=== PATIENT | male | born 1985 ===

== ENCOUNTER 2017-03-15 10:09 | Emergency (ER) | payer OTHER ==
[2017-03-15 10:22] VITALS: BP 132/71; PULSE 77; TEMP 97; O2SAT 97
[2017-03-15 10:42] VITALS: BMI 26.3
--- NOTE | 2017-03-15 13:01 | ED PDOC ---
Lower Extremity Pain/Injury Time Seen by Provider: 03/15/17 10:45 Chief Complaint (Nursing): Lower Extremity Problem/Injury Chief Complaint (Provider): Bilateral foot pain and swelling for 3 months History Per: Patient History/Exam Limitations: no limitations Onset/Duration Of Symptoms: Days Current Symptoms Are (Timing): Still Present Pain Scale Rating Of: 3 Additional Complaint(s): Pt states something hit the ankles/feet 3 months ago at work. Pt reports initial swelling but states now every time he works his ankle and feet swell. No new trauma. PT states that he was seen by WC doctor initially. Pt states no imaging was completed. PT states he comes to the ER today because he did not go to work yesterday or today. Past Medical History Reviewed: Historical Data, Nursing Documentation, Vital Signs Vital Signs: Last Vital Signs Temp 97 F L 03/15/17 10:21 Pulse 77 03/15/17 10:21 Resp BP 132/71 03/15/17 10:21 Pulse Ox 97 03/15/17 10:21 - Medical History PMH: No Chronic Diseases - Surgical History Surgical History: No Surg Hx - Family History Family History: States: No Known Family Hx - Living Arrangements Living Arrangements: With Family - Social History Current smoker - smoking cessation education provided: No Alcohol: Occasional - Immunization History Hx Tetanus Toxoid Vaccination: No Hx Influenza Vaccination: No Hx Pneumococcal Vaccination: No - Allergies Allergies/Adverse Reactions: Allergies Allergy/AdvReac Type Severity Reaction Status Date / Time No Known Allergies Allergy Verified 03/15/17 10:42 Review of Systems ROS Statement: Except As Marked, All Systems Reviewed And Found Negative Musculoskeletal: Positive for: Leg Pain Skin: Negative for: Rash, Bruising Physical Exam - Reviewed Nursing Documentation Reviewed: Yes Vital Signs Reviewed: Yes - Physical Exam Appears: Positive for: Well, Non-toxic, No Acute Distress Head Exam: Positive for: ATRAUMATIC, NORMAL INSPECTION, NORMOCEPHALIC Skin: Positive for: Normal Color (No ertyehma or ecchymosis of bilateral lower extremities ), Warm Eye Exam: Positive for: Normal appearance ENT: Positive for: Normal ENT Inspection Neck: Positive for: Normal, Painless ROM Cardiovascular/Chest: Positive for: Regular Rate, Rhythm Respiratory: Positive for: Normal Breath Sounds. Negative for: Accessory Muscle Use Pulses-Dorsalis Pedis (L): 2+ Pulses-Dorsalis Pedis (R): 2+ Pulses-Post. Tibialis (L): 2+ Pulses-Post. Tibialis (R): 2+ Back: Positive for: Normal Inspection Extremity: Positive for: Normal ROM, Swelling (Bilateral swelling of feet and ankles ). Negative for: Tenderness, Deformity Neurologic/Psych: Positive for: Alert, Oriented - ECG O2 Sat by Pulse Oximetry: 97 Medical Decision Making Medical Decision Making: Ankle x-rays normal. US normal. Disposition - Clinical Impression Clinical Impression: Chronic foot pain - Patient ED Disposition Is Patient to be Admitted: No Counseled Patient/Family Regarding: Diagnosis, Need For Followup - Disposition Referrals: [facility] Relations [facility] [Outside] [facility] [Outside] [facility] [Outside] Disposition: Routine/Home Disposition Time: 12:51 Condition: GOOD Instructions: Swollen Joint (ED) Forms: [facility] ([place]), [facility] ED School/Work Excuse Print Language: BAHAMIAN
--- NOTE | 2017-03-15 13:09 | US ---
PROCEDURE: Bilateral lower extremity venous duplex Doppler. HISTORY: Lower leg swelling COMPARISON: None available. TECHNIQUE: Bilateral common femoral, superficial femoral, popliteal and posterior tibial veins were evaluated. Flow was assessed with color Doppler, compressibility, assessment of phasic flow and augmentation response. FINDINGS: COMMON FEMORAL VEIN: Right CFV: Unremarkable. Left CFV: Unremarkable. SUPERFICIAL FEMORAL VEIN: Right SFV: Unremarkable. Left SFV: Unremarkable. POPLITEAL VEIN: Right Popliteal: Unremarkable. Left Popliteal: Unremarkable. POSTERIOR TIBIAL VEIN: Right PTV: Unremarkable. Left PTV: Unremarkable. OTHER FINDINGS: None. IMPRESSION: No evidence of deep venous thrombosis.
--- NOTE | 2017-03-15 18:12 | RAD ---
PROCEDURE: Right Ankle Radiographs. HISTORY: bilateral ankle pain, swelling x 3 months COMPARISON: None FINDINGS: BONES: No acute fracture or destructive bony lesion identified. JOINTS: Normal. No osteoarthritis. Ankle mortise maintained. Talar dome intact SOFT TISSUES: Normal. OTHER FINDINGS: None. IMPRESSION: Unremarkable right ankle radiographs.
== END 2017-03-15 13:13 | disposition home or self-care (01) ==
LOC: H.ER 10:09
DX: G89.29 Other chronic pain (principal)